=== PATIENT | male | born 1975 | race Caucasian/White ===

== ENCOUNTER → 2019-12-17 09:17 | Outpatient (CLI) | payer OTHER, SELFPAY ==
--- NOTE | 2019-12-17 | DI.RAD.S_ITS ---
PROCEDURE: XR LUMBAR SPINE 2-3V INDICATIONS: BACK PAIN TECHNIQUE: 3 views of the lumbar spine were acquired. COMPARISON: [facility], CR, KUB XRAY (1 VIEW ABDOMEN), 01/14/2017, 8:08. FINDINGS: Bones: 5 [id number] vertebrae are present. There is grade 1 retrolisthesis of L5 on S1. No vertebral body compression fractures. No suspicious bony lesions. There is mild degenerative disc disease at L3-L4, L4-L5 and L5-S1. Soft tissues: Overlying bowel gas pattern is normal. Bilateral renal calculi are suspected. A 5 mm stone projects to the right kidney and an 8 mm stone projects to the left kidney. Moderate amount of stool in colon. IMPRESSION: 1. Mild degenerative disc disease in the lower lumbar spine. 2. Bilateral renal calculi. Dictated by: Liu Ching M.D. on 12/17/2019 at 10:17 Approved by: Liu Ching M.D. on 12/17/2019 at 10:21
== END ==
PROVIDERS: PCP Family Medicine; Visit Provider Family Medicine
DX: M54.9 Dorsalgia, unspecified (principal); M51.36 Other intervertebral disc degeneration, lumbar region; M51.37 Other intervertebral disc degeneration, lumbosacral region; N20.0 Calculus of kidney
CPT/HCPCS: 72100

== ENCOUNTER 2019-12-27 15:39 | Emergency (ER) | payer OTHER, SELFPAY ==
[2019-12-27 15:54] VITALS: BP 136/80; PULSE 69; RESP 14; TEMP 37.1; O2SAT 99
--- NOTE | 2019-12-27 15:54 | DI.CT.S_ITS ---
PROCEDURE: CT KIDNEY URETER BLADDER (KUB) INDICATIONS: flank pain TECHNIQUE: Noncontrast 5 mm thick sections acquired from the diaphragms to the symphysis. 5 mm thick coronal and sagittal reformats were then performed. For radiation dose reduction, the following was used: automated exposure control, adjustment of mA and/or kV according to patient size. COMPARISON: [facility], CT, KIDNEY/ URETER/BLADDER, 11/12/2016, 14:53. FINDINGS: Image quality: Diagnostic. Lung bases: Lung bases are clear. Heart size is normal. Urinary system: Both kidneys are normal in size. Prominent right-sided periureteral and perinephric stranding is identified. There is a 5 x 6 x 6 mm calculus evident at the ureteropelvic junction with associated moderate right-sided hydronephrosis. No additional right-sided ureteral calculi are evident. There are multiple bilateral renal calculi with the largest located within the inferior aspect of the left kidney that is noted to measure up to approximately 1.1 cm in long axis. No left-sided hydronephrosis is identified. There is a rounded focus of low attenuation within the left kidney, which is not adequately evaluated on this examination and measures up to 1.9 cm, but most likely representing a cyst. Other solid organs: The spleen may be mildly enlarged and measures up to 14.5 cm in AP dimension. The liver is normal in size. The adrenals and pancreas appear to be within normal limits. Peritoneum and bowel: There may be a small hiatal hernia. The stomach is otherwise unremarkable. The small bowel loops are nondilated. A large amount of residual stool is identified throughout the colon. No free fluid or loculated fluid collection is appreciated within the peritoneal cavity of the abdomen. There is no free air. Nodes and vessels: No retroperitoneal or mesenteric adenopathy by size criteria. Aorta and inferior vena cava are normal in caliber. Pelvis: No free pelvic fluid. No inguinal hernias or adenopathy. Bones: No suspicious bony lesions. No vertebral body compression fractures. IMPRESSION: 1. At least partially obstructing proximal right ureteral calculus (6 mm) at the ureteropelvic junction with corresponding moderate right-sided hydronephrosis and perinephric edema. 2. Multiple bilateral nonobstructing renal calculi. 3. Possible mild splenomegaly. 4. No bowel obstruction. 5. Small hiatal hernia. Dictated by: Ulises Pierre M.D. on 12/27/2019 at 15:58 Approved by: Ulises Pierre M.D. on 12/27/2019 at 16:03
[2019-12-27 16:03] LABS: Add Manual Diff / Slide Review NO; Basophils Absolute Auto 100 /uL (0-100); Basophils Percent Auto 0.6 % (0-2); Eosinophils Absolute Auto 0 /uL (0-450); Eosinophils Percent Auto 0.1 % (2-4); Hematocrit 44.1 % (41-53); Hemoglobin 15.2 g/dL (13.5-17.5); Lymphocytes Absolute Auto 600 /uL (1100-4500); Lymphocytes Percent Auto 5.9 % (25-40); Mean Corpuscular HGB Conc 34.4 % (30-36); Mean Corpuscular Volume 84.4 fL (80-100); Monocytes Absolute Auto 600 /uL (0-900); Monocytes Percent Auto 5.8 % (3-14); Neutrophils Absolute Auto 9100 /uL (1500-7000); Neutrophils Percent Auto 87.6 % (50-75); Platelet Count 194 X10^3/uL (150-400); Red Blood Cell Count 5.23 X10^6/uL (4.5-5.9); Red Cell Distribution Width 13.2 % (11.6-14.8); White Blood Cell Count 10.4 X10^3/uL (4.5-11.0)
[2019-12-27 16:06] LABS: Alanine Aminotransferase 37 IU/L (<50); Albumin 4.4 g/dL (3.5-5.0); Albumin Globulin Ratio 1.7 (1.0-2.8); Alkaline Phosphatase 79 U/L (38-126); Aspartate Aminotransferase 43 IU/L (17-59); BUN Creatinine Ratio 18.2 (6-22); Blood Urea Nitrogen 20 mg/dL (9-20); Calcium 9.4 mg/dL (8.4-10.2); Carbon Dioxide 27 mmol/L (22-32); Chloride 102 mmol/L (98-107); Estimated Glomerular Filt Rate > 60.0 mL/min (>60); Globulin 2.6 g/dL (1.7-4.1); Glucose 96 mg/dL (70-100); HEMOLYSIS < 15 (0-50); Sodium 138 mmol/L (137-145)
[2019-12-27] MEDS: SODIUM CHLORIDE 0.9% 1,000 ML 1000 ML IV ×2 (16:08→18:30)
[2019-12-27] MEDS: ONDANSETRON 4 MG/2 ML INJ IV ×2 (16:08→18:24)
[2019-12-27] MEDS: KETOROLAC 60 MG/2 ML VIAL 30 MG IV (16:08)
[2019-12-27] MEDS: ONDANSETRON 4 MG/2 ML INJ (17:45)
[2019-12-27 17:49] LABS: Appearance Urine UA SL CLOUDY; Bilirubin Urine UA NEGATIVE (NEGATIVE); Color Urine UA YELLOW; Glucose Urine UA NEGATIVE (Negative); Ketones Urine UA 2+ (NEGATIVE); Leukocyte Esterase Urine UA NEGATIVE (NEGATIVE); Nitrite Urine UA NEGATIVE (Negative); Occult Blood Urine UA 3+ (Negative); Protein Urine UA TRACE (Negative); Specific Gravity Urine UA 1.015 (1.000-1.035); Urobilinogen Urine UA 0.2 E.U./dL (0.2)
[2019-12-27 17:59] LABS: Amorphous Sediment Urine 1+; RBC Urine >100/HPF (0-5/HPF); Squamous Epithelial Cell Urine 0-1 /HPF (0-5/HPF); Transitional Epi Cells Urine 0-1/HPF (0-5/HPF); WBC Urine 1-5/HPF (0-5/HPF)
[2019-12-27 18:00] LABS: Bacteria Urine Occasional (0-1); Culture Indicated Urine Cult Not Indicated
[2019-12-27] MEDS: HYDROCODONE/ACET 5/325 TABLET 1 TAB PO (18:23)
[2019-12-27] MEDS: TAMSULOSIN 0.4 MG CAPSULE PO (18:23)
[2019-12-27] MEDS: ONDANSETRON 4 MG ODT PREPACK 1 BOTTLE MISC (18:23)
[2019-12-27] MEDS: HYDROCODONE/ACET 5/325 PREPACK 1 BOTTLE MISC (18:24)
[2019-12-27] MEDS: KETOROLAC 10MG PREPACK 1 BOTTLE MISC (18:24)
[2019-12-27 18:35] VITALS: BP 116/78; PULSE 66; RESP 14; O2SAT 99
[2019-12-27 19:52] VITALS: BP 120/68; PULSE 53; RESP 16; O2SAT 99
--- NOTE | 2019-12-27 20:17 | ED_ITS ---
HPI - Male Genitourinary <JEREMIAH Bragg - Last Filed: 12/27/19 20:49> General Chief complaint: Urogenital-Male Stated complaint: Kidney Stone Time Seen by Provider: 12/27/19 15:47 Source: patient and family Mode of arrival: Ambulatory Limitations: no limitations History of Present Illness HPI Narrative: The patient is a 43-year-old male who presents with his for chief complaint of right-sided flank pain. He has a history of kidney stones, states that this started at 2:00 a.m.. He notes hematuria, nausea, vomiting and flank pain. States it feels very similar to previous kidney stones. He denies any dysuria, fevers. He has not taken anything to feel better. He states that his PCP is working on a urology referral given his history of kidney stones yet. He has not followed through on that yet. Related Data Previous Rx's Medication Instructions Recorded hydrocodone-acetaminophen [Thoreau] 1 tab PO Q4-6H PRN #10 tab 12/27/19 ketorolac 10 mg PO TID PRN #14 tab 12/27/19 ondansetron 4 mg PO Q6H PRN #20 tab 12/27/19 tamsulosin [Flomax] 0.4 mg PO DAILY #7 cap 12/27/19 Allergies Allergy/AdvReac Type Severity Reaction Status Date / Time Iodinated Contrast Media Allergy Verified 12/27/19 16:21 Review of Systems <JEREMIAH Bragg - Last Filed: 12/27/19 20:49> Review of Systems Narrative: GENERAL: Denies chills, fatigue, malaise, fever, sweats. HEENT: Denies sinus pain, ear pain, sore throat, difficulty swallowing, dizziness. RESPIRATORY: Denies dyspnea, cough, wheezing, hemoptysis, sputum. CARDIOVASCULAR: Denies chest pain, palpitations, orthopnea, edema, GASTROINTESTINAL: See HPI : See HPI MUSCULOSKELETAL: denies weakness, joint pain, or bony pain SKIN: Denies rash, skin lesions, or other NEUROLOGIC: Denies weakness, headache, numbness, change in speech, confusion, seizures, incoordination. PSYCHIATRIC: No concerning psychosocial issues. 12 point review of systems is negative except for those stated above Exam <JEREMIAH Bragg - Last Filed: 12/27/19 20:49> Narrative Exam Narrative: GENERAL: This is a well-nourished, well-developed patient, appears uncomfortable HEAD: Atraumatic. Normocephalic. No temporal or scalp tenderness. EYES: Pupils equal round and reactive. Extraocular motions intact. No scleral icterus. No injection or drainage. ENT: Nose without bleeding, purulent drainage or septal hematoma. Throat without erythema, tonsillar hypertrophy or exudate. Uvula midline. Airway patent. NECK: Trachea midline. No JVD or lymphadenopathy. Supple, nontender, no meningeal signs. CARDIOVASCULAR: Regular rate and rhythm RESPIRATORY: Clear to auscultation. Breath sounds equal bilaterally. No wheezes, rales, or rhonchi. GASTROINTESTINAL: Abdomen soft, non-tender, nondistended. No hepato- splenomegaly, or palpable masses. No guarding. EXTREMITIES: No clubbing, cyanosis, or edema. No joint tenderness, effusion, or edema noted. BACK: Nontender without deformity or crepitance. Flank tenderness noted on right side, no flank tenderness noted on left side NEURO: AOx3. SKIN: No rash or erythema visible skin Initial Vital Signs Initial Vital Signs: Vital Signs Temperature 98.8 F 12/27/19 15:54 Pulse Rate 69 12/27/19 15:54 Respiratory Rate 14 12/27/19 15:54 Blood Pressure 136/80 12/27/19 15:54 Pulse Oximetry 99 12/27/19 15:54 <Melissa Hair DO - Last Filed: 12/30/19 07:15> Initial Vital Signs Initial Vital Signs: Vital Signs Temperature 98.8 F 12/27/19 15:54 Pulse Rate 69 12/27/19 15:54 Respiratory Rate 14 12/27/19 15:54 Blood Pressure 136/80 12/27/19 15:54 Pulse Oximetry 99 12/27/19 15:54 Course <JEREMIAH Bragg - Last Filed: 12/27/19 20:49> Orders Ordered: Discontinued Medications Hydrocodone Bitart/Acetaminophen (Thoreau 5/325) 1 tab PO NOW ONE Stop: 12/27/19 18:11 Last Admin: 12/27/19 18:23 Dose: 1 tab Documented by: KINA Hydrocodone Bitart/Acetaminophen (Vicodin 5/325 Prepack) 1 bottle MISC SEEINSTR ONE Stop: 12/27/19 18:11 Last Admin: 12/27/19 18:24 Dose: 1 bottle Documented by: KINA Sodium Chloride (Normal Saline 0.9%) 1,000 mls @ 1,000 mls/hr IV BOLUS ONE Stop: 12/27/19 16:53 Last Infusion: 12/27/19 17:45 Dose: 0 mls/hr Documented by: Admin: 12/27/19 16:08 Dose: 1,000 mls/hr Documented by: ELIDA Sodium Chloride (Normal Saline 0.9%) 1,000 mls @ 1,000 mls/hr IV BOLUS PRN PRN Reason: Fluid replacement Last Infusion: 12/27/19 19:46 Dose: 0 mls/hr Documented by: Admin: 12/27/19 18:30 Dose: 1,000 mls/hr Documented by: KINA Ketorolac Tromethamine (Toradol) 30 mg IV NOW ONE Stop: 12/27/19 15:55 Last Admin: 12/27/19 16:08 Dose: 30 mg Documented by: ELIDA Ketorolac Tromethamine (Toradol 10mg Prepack) 1 bottle MISC SEEINSTR ONE Stop: 12/27/19 18:11 Last Admin: 12/27/19 18:24 Dose: 1 bottle Documented by: KINA Ondansetron HCl (Zofran) 4 mg IV NOW ONE Stop: 12/27/19 15:55 Last Admin: 12/27/19 16:08 Dose: 4 mg Documented by: ELIDA Ondansetron HCl (Zofran) 4 mg IV NOW ONE Stop: 12/27/19 17:45 Last Admin: 12/27/19 18:24 Dose: 4 mg Documented by: KINA Ondansetron HCl (Zofran Odt Prepack) 1 bottle MISC SEEINSTR ONE Stop: 12/27/19 18:11 Last Admin: 12/27/19 18:23 Dose: 1 bottle Documented by: KINA Tamsulosin HCl (Flomax) 0.4 mg PO NOW ONE Stop: 12/27/19 18:11 Last Admin: 12/27/19 18:23 Dose: 0.4 mg Documented by: KINA Vital Signs Vital signs: Vital Signs - 8 hr 12/27/19 15:54 12/27/19 18:35 12/27/19 19:52 Temperature 98.8 F Pulse Rate 69 66 53 L Respiratory Rate 14 14 16 Blood Pressure 136/80 120/68 Blood Pressure [Right Arm] 116/78 Pulse Oximetry 99 99 99 <Melissa Hair DO - Last Filed: 12/30/19 07:15> Orders Ordered: Discontinued Medications Hydrocodone Bitart/Acetaminophen (Thoreau 5/325) 1 tab PO NOW ONE Stop: 12/27/19 18:11 Last Admin: 12/27/19 18:23 Dose: 1 tab Documented by: KINA Hydrocodone Bitart/Acetaminophen (Vicodin 5/325 Prepack) 1 bottle MISC SEEINSTR ONE Stop: 12/27/19 18:11 Last Admin: 12/27/19 18:24 Dose: 1 bottle Documented by: KINA Sodium Chloride (Normal Saline 0.9%) 1,000 mls @ 1,000 mls/hr IV BOLUS ONE Stop: 12/27/19 16:53 Last Infusion: 12/27/19 17:45 Dose: 0 mls/hr Documented by: Admin: 12/27/19 16:08 Dose: 1,000 mls/hr Documented by: ELIDA Sodium Chloride (Normal Saline 0.9%) 1,000 mls @ 1,000 mls/hr IV BOLUS PRN PRN Reason: Fluid replacement Last Infusion: 12/27/19 19:46 Dose: 0 mls/hr Documented by: Admin: 12/27/19 18:30 Dose: 1,000 mls/hr Documented by: KINA Ketorolac Tromethamine (Toradol) 30 mg IV NOW ONE Stop: 12/27/19 15:55 Last Admin: 12/27/19 16:08 Dose: 30 mg Documented by: ELIDA Ketorolac Tromethamine (Toradol 10mg Prepack) 1 bottle MISC SEEINSTR ONE Stop: 12/27/19 18:11 Last Admin: 12/27/19 18:24 Dose: 1 bottle Documented by: KINA Ondansetron HCl (Zofran) 4 mg IV NOW ONE Stop: 12/27/19 15:55 Last Admin: 01/26/20 16:08 Dose: 4 mg Documented by: ELIDA Ondansetron HCl (Zofran) 4 mg IV NOW ONE Stop: 12/27/19 17:45 Last Admin: 12/27/19 18:24 Dose: 4 mg Documented by: KINA Ondansetron HCl (Zofran Odt Prepack) 1 bottle MISC SEEINSTR ONE Stop: 12/27/19 18:11 Last Admin: 12/27/19 18:23 Dose: 1 bottle Documented by: KINA Tamsulosin HCl (Flomax) 0.4 mg PO NOW ONE Stop: 12/27/19 18:11 Last Admin: 12/27/19 18:23 Dose: 0.4 mg Documented by: KINA Vital Signs Vital signs: Vital Signs - 8 hr 12/27/19 15:54 12/27/19 18:35 12/27/19 19:52 Temperature 98.8 F Pulse Rate 69 66 53 L Respiratory Rate 14 14 16 Blood Pressure 136/80 120/68 Blood Pressure [Right Arm] 116/78 Pulse Oximetry 99 99 99 MDM - Male Genitourinary <CHIRAG BraggP- - Last Filed: 12/27/19 20:49> Lab Data Result diagrams: 12/27/19 15:30 12/27/19 15:30 Labs: Lab Results 12/27/19 12/27/19 12/27/19 Range/Units 15:30 15:30 17:42 WBC 10.4 (4.5-11.0) X10^3/uL RBC 5.23 (4.5-5.9) X10^6/uL Hgb 15.2 (13.5-17.5) g/dL Hct 44.1 (41-53) % MCV 84.4 (80-100) fL MCH 29.0 (26-34) PG MCHC 34.4 (30-36) % RDW 13.2 (11.6-14.8) % Plt Count 194 (150-400) X10^3/uL Neut % (Auto) 87.6 H (50-75) % Lymph % (Auto) 5.9 L (25-40) % [place] % (Auto) 5.8 (3-14) % Eos % (Auto) 0.1 L (2-4) % Baso % (Auto) 0.6 (0-2) % Neut # (Auto) 9100 H (3965-4956) /uL Lymph # (Auto) 600 L (2420-7782) /uL [place] # (Auto) 600 (0-900) /uL Eos # (Auto) 0 (0-450) /uL Baso # (Auto) 100 (0-100) /uL Sodium 138 (137-145) mmol/L Potassium 4.0 (3.4-5.1) mmol/L Chloride 102 (98-107) mmol/L Carbon Dioxide 27 (22-32) mmol/L BUN 20 (9-20) mg/dL Creatinine 1.10 (0.66-1.25) mg/dL Estimated GFR > 60.0 (>60) mL/min BUN/Creatinine Ratio 18.2 (6-22) Glucose 96 (70-100) mg/dL Calcium 9.4 (8.4-10.2) mg/dL Total Bilirubin 1.0 (0.2-1.3) mg/dL AST 43 (17-59) IU/L ALT 37 (<50) IU/L Alkaline Phosphatase 79 (38-126) U/L Total Protein 7.0 (6.3-8.2) g/dL Albumin 4.4 (3.5-5.0) g/dL Globulin 2.6 (1.7-4.1) g/dL Albumin/Globulin Ratio 1.7 (1.0-2.8) Urine Color Yellow Urine Appearance Sl cloudy Urine pH 7.0 (4.5-8.0) Ur Specific [place] 1.015 (1.000-1.035) Urine Protein Trace H (Negative) Urine Glucose (UA) Negative (Negative) g/dL Urine Ketones 2+ H (NEGATIVE) Urine Occult Blood 3+ H (Negative) Urine Nitrate Negative (Negative) Urine Bilirubin Negative (NEGATIVE) Urine Urobilinogen 0.2 (0.2) E.U./dL Ur Leukocyte Esterase Negative (NEGATIVE) Urine RBC >100/hpf (0-5/HPF) Urine WBC 1-5/hpf (0-5/HPF) Ur Squamous Epith Cells 0-1 /hpf (0-5/HPF) Ur Transition Epith Cell 0-1/hpf (0-5/HPF) Amorphous Sediment 1+ Urine Bacteria Occasional (0-1) (None) Ur Culture Indicated? Cult not indicated Imaging Data CT scan - abdomen/pelvis: Radiologist's Impression: [address] [address] [address] Scan Report Signed Patient: Dewey Erwin RMR#: [id number] : 1975Acct:[id number] Age/Sex: 43 / MDate of Service: 12/27/19 Loc: ED Accession Number: [id number] Procedure: CT kidney ureter bladder (KUB) Ordering Provider: Allyssa Cain- PROCEDURE: CT KIDNEY URETER BLADDER (KUB) INDICATIONS: flank pain TECHNIQUE: Noncontrast 5 mm thick sections acquired from the diaphragms to the symphysis. 5 mm thick coronal and sagittal reformats were then performed. For radiation dose reduction, the following was used: automated exposure control, adjustment of mA and/or kV according to patient size. COMPARISON: [facility], CT, KIDNEY/ URETER/BLADDER, 11/12/2016, 14:53. FINDINGS: Image quality: Diagnostic. Lung bases: Lung bases are clear. Heart size is normal. Urinary system: Both kidneys are normal in size. Prominent right-sided periureteral and perinephric stranding is identified. There is a 5 x 6 x 6 mm calculus evident at the ureteropelvic junction with associated moderate right-sided hydronephrosis. No additional right-sided ureteral calculi are evident. There are multiple bilateral renal calculi with the largest located within the inferior aspect of the left kidney that is noted to measure up to approximately 1.1 cm in long axis. No left-sided hydronephrosis is identified. There is a rounded focus of low attenuation within the left kidney, which is not adequately evaluated on this examination and measures up to 1.9 cm, but most likely representing a cyst. Other solid organs: The spleen may be mildly enlarged and measures up to 14.5 cm in AP dimension. The liver is normal in size. The adrenals and pancreas appear to be within normal limits. Peritoneum and bowel: There may be a small hiatal hernia. The stomach is otherwise unremarkable. The small bowel loops are nondilated. A large amount of residual stool is identified throughout the colon. No free fluid or loculated fluid collection is appreciated within the peritoneal cavity of the abdomen. There is no free air. Nodes and vessels: No retroperitoneal or mesenteric adenopathy by size criteria. Aorta and inferior vena cava are normal in caliber. Pelvis: No free pelvic fluid. No inguinal hernias or adenopathy. Bones: No suspicious bony lesions. No vertebral body compression fractures. IMPRESSION: 1. At least partially obstructing proximal right ureteral calculus (6 mm) at the ureteropelvic junction with corresponding moderate right-sided hydronephrosis and perinephric edema. 2. Multiple bilateral nonobstructing renal calculi. 3. Possible mild splenomegaly. 4. No bowel obstruction. 5. Small hiatal hernia. Dictated by: Ulises Pierre M.D. on 12/27/2019 at 15:58 Approved by: Ulises Pierre M.D. on 12/27/2019 at 16:03 MDM Narrative Medical decision making narrative: Patient is a 43-year-old male with history of kidney stones who presents with a chief complaint of right-sided flank pain. He has a 6 mm partially obstructing right ureteral calculus. Kidney function is within normal limits. He is able to keep down p.o. in the emergency department. Patient states that his primary care provider is working on a urology referral and that he plans on calling his PCP on Saturday to follow through with that. He has no signs of infection in his urine, no nitrates or leukocyte esterase etcetera with no need for culture. I discussed at length pushing fluids, pain medication, that Thoreau can be constipating and sedating, not combining Toradol with any other anti-inflammatories. Encouraged monitoring for signs of infection such as fever, inability keep down fluids etcetera as well as dysuria. Discussed draining urine, starting Flomax. Patient was given take-home packs. Patient has no questions or concerns upon discharge and states understanding return precautions as well as follow-up care. <Melissa Hair, DO - Last Filed: 12/30/19 07:15> Lab Data Labs: Lab Results 12/27/19 12/27/19 12/27/19 Range/Units 15:30 15:30 17:42 WBC 10.4 (4.5-11.0) X10^3/uL RBC 5.23 (4.5-5.9) X10^6/uL Hgb 15.2 (13.5-17.5) g/dL Hct 44.1 (41-53) % MCV 84.4 (80-100) fL MCH 29.0 (26-34) PG MCHC 34.4 (30-36) % RDW 13.2 (11.6-14.8) % Plt Count 194 (150-400) X10^3/uL Neut % (Auto) 87.6 H (50-75) % Lymph % (Auto) 5.9 L (25-40) % [place] % (Auto) 5.8 (3-14) % Eos % (Auto) 0.1 L (2-4) % Baso % (Auto) 0.6 (0-2) % Neut # (Auto) 9100 H (8993-5441) /uL Lymph # (Auto) 600 L (6962-5099) /uL [place] # (Auto) 600 (0-900) /uL Eos # (Auto) 0 (0-450) /uL Baso # (Auto) 100 (0-100) /uL Sodium 138 (137-145) mmol/L Potassium 4.0 (3.4-5.1) mmol/L Chloride 102 (98-107) mmol/L Carbon Dioxide 27 (22-32) mmol/L BUN 20 (9-20) mg/dL Creatinine 1.10 (0.66-1.25) mg/dL Estimated GFR > 60.0 (>60) mL/min BUN/Creatinine Ratio 18.2 (6-22) Glucose 96 (70-100) mg/dL Calcium 9.4 (8.4-10.2) mg/dL Total Bilirubin 1.0 (0.2-1.3) mg/dL AST 43 (17-59) IU/L ALT 37 (<50) IU/L Alkaline Phosphatase 79 (38-126) U/L Total Protein 7.0 (6.3-8.2) g/dL Albumin 4.4 (3.5-5.0) g/dL Globulin 2.6 (1.7-4.1) g/dL Albumin/Globulin Ratio 1.7 (1.0-2.8) Urine Color Yellow Urine Appearance Sl cloudy Urine pH 7.0 (4.5-8.0) Ur Specific [place] 1.015 (1.000-1.035) Urine Protein Trace H (Negative) Urine Glucose (UA) Negative (Negative) g/dL Urine Ketones 2+ H (NEGATIVE) Urine Occult Blood 3+ H (Negative) Urine Nitrate Negative (Negative) Urine Bilirubin Negative (NEGATIVE) Urine Urobilinogen 0.2 (0.2) E.U./dL Ur Leukocyte Esterase Negative (NEGATIVE) Urine RBC >100/hpf (0-5/HPF) Urine WBC 1-5/hpf (0-5/HPF) Ur Squamous Epith Cells 0-1 /hpf (0-5/HPF) Ur Transition Epith Cell 0-1/hpf (0-5/HPF) Amorphous Sediment 1+ Urine Bacteria Occasional (0-1) (None) Ur Culture Indicated? Cult not indicated Discharge Plan Departure Patient Disposition: Home Clinical Impression: Bilateral nephrolithiasis, Right ureteral calculus Discharge Date/Time: 12/27/19 19:52 Instructions: DI for Kidney Stones Activity Restrictions/Additional Instructions: You have a 6 mm ureteral calculus at your ureteropelvic junction You also have multiple stones in each kidney Today your kidney function is good and your urine is without signs of infection. 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 This is an NSAID. Do not combine it with other NSAIDs such as Aleve or ibuprofen. I suggest taking it with some food, as it can irritate your stomach. I have given you a prescription of a narcotic for pain. Be aware that this can be constipating and sedating. I encouraged taking with a stool softener, pushing fluids and fiber. Do not take and drive, operate heavy machinery, etc. Do not combine it with any other sedating substances such as alcohol. The combination of narcotics and alcohol and/or other sedatives can be lethal. Prescriptions: New ondansetron 4 mg tablet,disintegrating 4 mg PO Q6H PRN (Reason: nausea and vomiting) Qty: 20 RF: 0 hydrocodone-acetaminophen [Thoreau] 5-325 mg tablet 1 tab PO Q4-6H PRN (Reason: pain) Qty: 10 RF: 0 ketorolac 10 mg tablet 10 mg PO TID PRN (Reason: pain) Qty: 14 RF: 0 tamsulosin [Flomax] 0.4 mg capsule 0.4 mg PO DAILY Qty: 7 RF: 0 Referrals: Rick Petit MD [Primary Care Provider] -
== END 2019-12-27 19:52 | disposition home or self-care (01) ==
PROVIDERS: Emergency Provider Nurse Practitioner Family; PCP Family Medicine
DX: N20.2 Calculus of kidney with calculus of ureter (principal); Z87.442 Personal history of urinary calculi
CPT/HCPCS: 36415; 74176; 80053; 81001; 85025; 96361; 96374; 96375; 96376; 99284; 99285; J1885; J2405

== ENCOUNTER → 2020-03-01 12:43 | Outpatient (CLI) | payer OTHER, SELFPAY ==
--- NOTE | 2020-03-01 | DI.US.S_ITS ---
PROCEDURE: US RENAL COMPLETE INDICATIONS: HISTORY KIDNEY STONES; RECENT RIGHT URETERAL STONE TECHNIQUE: Real-time scanning was performed of the kidneys and bladder, with image documentation. COMPARISON: [facility], CT, CT KIDNEY URETER BLADDER (KUB), 12/27/2019, 16:41. FINDINGS: Kidneys: Kidneys are normal in size. Right kidney measures 10.7 cm long; left kidney measures 10.8 cm long. Right renal cortical thickness is 1.5 cm; left renal cortical thickness is 1.5 cm. Renal cortical echotexture is normal. There is a 2 cm simple appearing cyst involving the mid aspect of the left kidney. A 1.1 cm calculus is identified involving the inferior margin of the left kidney. No definitive additional calculi are appreciated. However, multiple punctate bright reflectors within both renal medullary portions of the kidneys are evident. Bladder: Pre-void bladder volume is 129 mL. Post-void residual is 18 mL. Pre-void images demonstrate no intraluminal masses or stones. Miscellaneous: No free pelvic fluid. IMPRESSION: 1. No hydronephrosis. Previously seen right sided hydronephrosis has resolved. 2. Left renal calculi. Dictated by: Ulises Pierre M.D. on 03/01/2020 at 12:51 Approved by: Ulises Pierre M.D. on 03/01/2020 at 12:55
== END ==
PROVIDERS: PCP Family Medicine; Referring Provider Urology; Visit Provider Urology
DX: N20.1 Calculus of ureter (principal); N20.0 Calculus of kidney; N28.1 Cyst of kidney, acquired
CPT/HCPCS: 76770

== ENCOUNTER → 2020-08-27 08:41 | Outpatient (CLI) | payer OTHER, SELFPAY ==
--- NOTE | 2020-08-27 | DI.MRI.S_ITS ---
PROCEDURE: MR LUMBAR SPINE WO CON INDICATIONS: LOW BACK PAIN WITH SCIATICA TECHNIQUE: Noncontrast sagittal T1 spin echo and T2 fast echo, sagittal STIR, axial T1 and T2 fast spin echo through the lumbar spine. In cases with scoliosis, additional coronal T2 fast spin echo may be performed. COMPARISON: [facility], CR, XR LUMBAR SPINE 2-3V, 12/17/2019, 9:29. FINDINGS: Image quality: Excellent. Alignment and Curvature: 5 lumbar type vertebral bodies are present by plain film. Mild grade 1 retrolisthesis of L4 on L5 and L5 on S1. Bone Marrow: Marrow is of normal overall signal. No acute vertebral body compression fractures. Mild reactive signal within the endplates adjacent to the L4-L5 and L5-S1 intervertebral discs. Spinal Cord: Conus medullaris terminates at the lower L2 level. Visualized cord demonstrates normal signal and size. Paraspinous Soft Tissues: No paravertebral masses. L1-L2: Normal appearance. L2-L3: Normal appearance. L3-L4: Mild disc desiccation. No significant canal, or foraminal stenosis. L4-L5: Mild disc height loss and desiccation. Mild diffuse disc bulge. Mild facet and ligamentum flavum hypertrophy. Mild epidural lipomatosis. Mild canal stenosis. Mild bilateral foraminal stenosis. L5-S1: Moderate disc height loss and desiccation. Mild diffuse disc bulge with superimposed left paracentral protrusion. Mild bilateral facet hypertrophy. Mild canal stenosis. Moderate to severe left foraminal stenosis. Mild right foraminal stenosis. Mild left L5 nerve root compression. IMPRESSION: 1. Multilevel degenerative disc and facet disease, as well as ligamentum flavum hypertrophy and epidural lipomatosis. 2. Mild multilevel canal stenosis. 3. Multilevel foraminal stenosis, worst on the left at L5-S1 where there is associated L5 nerve root compression. Recommend correlation with clinical symptoms to ascertain relevance of this finding. Dictated by: Lokesh Resendiz M.D. on 08/29/2020 at 8:15 Approved by: Lokesh Resendiz M.D. on 08/29/2020 at 8:18
== END ==
PROVIDERS: PCP Family Medicine; Referring Provider Family Medicine; Visit Provider Family Medicine
DX: M51.16 Intervertebral disc disorders with radiculopathy, lumbar region (principal); M51.17 Intervertebral disc disorders with radiculopathy, lumbosacral region; M48.061 Spinal stenosis, lumbar region without neurogenic claudication; M48.07 Spinal stenosis, lumbosacral region; E88.2 Lipomatosis, not elsewhere classified
CPT/HCPCS: 72148

== ENCOUNTER → 2021-01-30 15:45 | Outpatient (CLI) | payer OTHER, SELFPAY ==
--- NOTE | 2021-01-30 15:48 | DI.US.S_ITS ---
PROCEDURE: US SCROTUM INDICATIONS: RIGHT TESTICLE MASS TECHNIQUE: Real-time scanning was performed of the scrotum and testicles, with image documentation. Color and pulse Doppler interrogation was performed of both testicles. COMPARISON: None. FINDINGS: Right: Testicle is normal in size at 4.7 x 3.1 x 2.4 cm, and homogenous in echotexture. Epididymis is normal in overall size and morphology. No hydrocele or varicoceles. Overlying scrotal skin is normal in thickness. Left: Testicle is normal in size at 4.6 x 3.6 x 2.1 cm, and homogeneous in echotexture. Epididymis is normal in overall size and morphology. No hydrocele or varicoceles. Overlying scrotal skin is normal in thickness. Doppler: Color and pulse Doppler demonstrate normal and symmetric arterial flow in both testicles. IMPRESSION: Negative examination as above. No discrete mass identified Dictated by: Sergey Rosa M.D. on 01/30/2021 at 16:48 Approved by: Sergey Rosa M.D. on 01/30/2021 at 16:50
== END ==
PROVIDERS: PCP Family Medicine; Referring Provider Family Medicine; Visit Provider Family Medicine
DX: N50.9 Disorder of male genital organs, unspecified (principal)
CPT/HCPCS: 76870

== ENCOUNTER → 2021-05-09 17:43 | Outpatient (CLI) | payer OTHER, SELFPAY ==
--- NOTE | 2021-05-09 | DI.MRI.S_ITS ---
PROCEDURE: MR KNEE LT WO CON INDICATIONS: Unspecified internal derangement of left knee TECHNIQUE: Noncontrast sagittal PD fast spin echo and T2 fast spin echo with fat saturation, sagittal 3-D FLASH with fat saturation; coronal T1 spin echo and PD fast spin echo with fat saturation, and axial PD fast spin echo with fat saturation through the knee. COMPARISON: None. FINDINGS: Image quality: Excellent. Menisci: The medial and lateral menisci demonstrate normal morphology and internal signal. The meniscal root ligaments appear intact. Cruciate ligaments: There is suggestion of low-grade intrasubstance partial-thickness tear involving distal anterior cruciate ligament near its tibial insertion. No full-thickness ACL rupture. PCL is intact. Medial structures: The medial collateral ligament appears intact. The posterior oblique ligament, semimembranosus tendon insertions, oblique popliteal ligament, and meniscocapsular junction appear intact. Visualized portions of the pes anserinus tendons appear normal. No abnormal bursal fluid. Lateral structures: The lateral collateral ligament, long and short heads of the biceps femoris tendon appear intact. The popliteus tendon appears normal; the popliteofibular ligament appears intact. The posterosuperior and anteroinferior popliteomeniscal fascicles appear intact. The arcuate and fabellofibular ligaments appear intact, on either side of the lateral inferior geniculate artery. Iliotibial band appears normal. Anterior structures: The quadriceps and patellar tendons appear intact. Patellar alignment is normal. No femoral trochlear dysplasia or ventral trochlear prominence. No edema in the infrapatellar fat pad. Bones and cartilage: There is focal area of moderate grade chondromalacia involving lateral facet of patella cartilage with underlying 5 mm osteochondral injury and mild marrow edema in posterior and lateral portion of patella. No other area of abnormal marrow signal. The cartilage of the medial and lateral femorotibial compartments appears normal in thickness. Joint space: There is small amount of joint fluid. No Newton's cyst. Normal appearing synovial plicae are incidentally noted. IMPRESSION: 1. 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 No other area of abnormal marrow signal or chondromalacia. Small amount of joint fluid. 2. Suggestion of low-grade intrasubstance partial-thickness tear involving distal anterior cruciate ligament at its tibial insertion. No full-thickness ACL rupture. PCL is intact. 3. No evidence of focal meniscal tear. Dictated by: Juancarlos Zapata M.D. on 05/10/2021 at 8:40 Approved by: Juancarlos Zapata M.D. on 05/10/2021 at 9:07
== END ==
PROVIDERS: PCP Family Medicine; Referring Provider Orthopaedic Surgery; Visit Provider Orthopaedic Surgery
DX: M22.42 Chondromalacia patellae, left knee (principal)
CPT/HCPCS: 73721

== ENCOUNTER 2021-10-29 15:22 | Emergency (ER) | payer OTHER, SELFPAY ==
[2021-10-29] VITALS (9 sets, daily range): BP systolic 119–133; BP diastolic 76–84; PULSE 59–73; RESP 12–22; TEMP 37.1; O2SAT 99–100
--- NOTE | 2021-10-29 15:40 | DI.RAD.S_ITS ---
PROCEDURE: XR CHEST 1V INDICATIONS: syncope vs seizure vs other TECHNIQUE: One view of the chest was acquired. COMPARISON: [facility], CT, CT HEAD/BRAIN WO CON, 10/29/2021, 15:49. FINDINGS: Surgical changes and devices: None. Lungs and pleura: Lungs are clear. No pleural effusions or pneumothorax. Mediastinum: Mediastinal contours appear normal. Heart size is normal. Bones and chest wall: No suspicious bony lesions. Overlying soft tissues appear unremarkable. IMPRESSION: Portable chest within normal limits. Dictated by: Phani Yuan M.D. on 10/29/2021 at 15:14 Approved by: Phani Yuan M.D. on 10/29/2021 at 15:14
--- NOTE | 2021-10-29 15:41 | DI.CT.S_ITS ---
PROCEDURE: CT HEAD/BRAIN WO CON INDICATIONS: syncope vs seizure vs other TECHNIQUE: Noncontrast 4.5 mm thick angled axial sections acquired from the foramen magnum to the vertex, with coronal and sagittal reformats. For radiation dose reduction, the following was used: automated exposure control, adjustment of mA and/or kV according to patient size. COMPARISON: [facility], RG, MRI HEAD W/O CONTRAST, 01/09/2006, 13:46. [facility], CR, XR CHEST 1V, 10/29/2021, 16:00. FINDINGS: Image quality: Excellent. CSF spaces: Basal cisterns are patent. No extra-axial fluid collections. Ventricles are normal in size and shape. Brain: No midline shift. No intracranial masses or hemorrhage. Garza-white matter interface is normal. Skull and face: Calvarium and visualized facial bones are intact, without suspicious lesions. Sinuses: Visualized sinuses and mastoids are clear. IMPRESSION: Unremarkable intracranial study, without a cause of seizures identified. Dictated by: Phani Yuan M.D. on 10/29/2021 at 15:12 Approved by: Phani Yuan M.D. on 10/29/2021 at 15:13
--- NOTE | 2021-10-29 15:42 | ED.SYNCOPE ---
HPI - Syncope General Chief Complaint: Syncope Stated Complaint: Syncope/ seizures Time Seen by Provider: 10/29/21 15:40 Source: patient and family Mode of arrival: EMS Limitations: no limitations History of Present Illness HPI narrative: This is a 45-year-old male who comes in for possible syncope versus seizure activity. Patient states he was on the couch, he did really have any sensation that anything was about to happen on and states he sort of woke up sideways on the couch. When EMS arrived he was orthostatic and when they tried to stand him his blood pressure dropped 80 and he became very lightheaded like he would pass out. Patient states he had a headache afterwards but did not have 1 prior to. It is behind his left eye. He denies any acute vision changes. He has some tingling in both fingers. He denies any new speech changes, no numbness or weakness in his extremities. He states all of his extremities are moving normally he does note when he moves his head side to side this seems to cause some spinning of the room but he did not appreciate this before he has had some mild vertigo in the past but not persistent. He has not had similar symptoms in the past. He does run regularly including ultra marathons. He took Ambien the last 2 nights but does not normally take this and he takes Zoloft regularly and this is not a new medication with no other new medication changes. He has not any other daily medications. No prior surgeries. He does not smoke tobacco. He occasionally has 1-3 alcoholic drinks nightly but not every night. Patient states he uses marijuana but denies any other recreational drugs. He does not have any prior family history of cardiac issues, seizures or similar changes. Related Data Previous Rx's Medication Instructions Recorded hydrocodone 5 mg-acetaminophen 325 1 tab PO Q4-6H PRN #10 tab 12/27/19 mg tablet (Alamo) ketorolac 10 mg tablet 10 mg PO TID PRN #14 tab 12/27/19 ondansetron 4 mg disintegrating 4 mg PO Q6H PRN #20 tab 12/27/19 tablet tamsulosin 0.4 mg capsule (Flomax) 0.4 mg PO DAILY #7 cap 12/27/19 Allergies Allergy/AdvReac Type Severity Reaction Status Date / Time Iodinated Contrast Media Allergy Verified 12/27/19 16:21 Review of Systems Review of Systems ROS Unobtainable: All systems reviewed & are unremarkable except as noted in HPI and below Patient History tobacco type: vaping Exam Narrative Exam Narrative: GEN: well nourished, well appearing male, alert and oriented x 3, patient appears to be in mild distress. Patient is slightly tearful on exam. HEENT: Atraumatic, pupils are equal round reactive to light, extraocular movements are intact, no nystagmus, nares are clear, TMs are clear with no fluid, there is no conjunctival pallor. Throat is clear without any exudates, erythema, tonsillar enlargement or uvular deviation, no facial droop. HEART: Regular rate and rhythm without murmur, clicks, rubs. No carotid bruits, pulses are equal in upper and lower extremities LUNGS:Lungs clear to auscultation, no wheezes, rales, crackles, chest moves symmetrically ABD:bowel sounds normal, soft, non-tender, no guarding, rebound, rigidity, no masses noted, no hepatosplenomegaly :No CVA tenderness MSCL: Non-tender, no muscle atrophy, muscles strength 5/5 upper and lower extremities, full range of motion, mild generalized tremor particularly in lower extremities. NEURO:CN 2-12 intact, sensation normal, reflexes 2/4 upper and lower extremities. finger nose finger test normal, heel lang test normal SKIN: No rash, erythema or other skin changes noted. PSYCH: Patient denies any thoughts of harming himself or others. He slightly tearful. Initial Vital Signs Initial Vital Signs: Vital Signs Pulse Rate 73 10/29/21 15:26 Blood Pressure 133/84 10/29/21 15:26 Pulse Oximetry 100 10/29/21 15:26 Scores GCS Aron coma scale eye opening: Spontaneous Aron coma scale verbal response: Orientated Aron coma scale motor response: Obey commands Se[place]rook coma scale total score: 15 NIH Stroke Scale Level of Conciousness: Alert, keenly responsive Ask month/age: Answers both questions correctly. Open/close eyes, close hand: Performs both tasks correctly Best gaze horizontal: Normal Visual raygoza: No visual loss Facial palsy: Normal symetrical movement Left arm drift: No drift for full 10 sec Right arm drift: No drift for full 10 sec Left leg drift: No drift for full 5 sec Right leg drift: No drift for full 5 sec Limb ataxia: Absent Sensory on face/arms/legs: Normal, no sensory loss Best language: No aphasia, normal Dysarthria: Normal Extinction or inattention: No abnormality Total NIH Stroke scale score: 0 Course Orders Ordered: ED Orders 10/29/21 15:35 Complete Blood Count AUTO DIFF Stat Comprehensive Metabolic Panel Stat D Dimer Stat ETOH [Ethanol (ETOH)] Stat NT-proBNP (BNP-Adult 18+) Stat Troponin & CK Cardiac Panel Stat 10/29/21 15:40 XR chest 1V Stat 10/29/21 15:41 CT head/brain wo con Stat 10/29/21 15:45 EKG-12 Lead Stat 10/29/21 16:02 UA Complete [Urinalysis and Microscopic] Stat Urine Drug Screen, Rapid Stat 10/29/21 16:10 COVID19 -Nasal swab/Pre-Proc Stat Discontinued Medications Sodium Chloride (Normal Saline 0.9%) 1,000 mls @ 1,000 mls/hr IV BOLUS ONE Stop: 10/29/21 16:39 Last Infusion: 10/29/21 16:28 Dose: 0 mls/hr Documented by: Admin: 10/29/21 16:15 Dose: 1,000 mls/hr Documented by: VARUN Meclizine HCl (Meclizine Hcl 12.5 Mg Tablet) 50 mg PO NOW ONE Stop: 10/29/21 15:41 Last Admin: 10/29/21 16:15 Dose: 50 mg Documented by: VARUN Ondansetron HCl (Ondansetron 4 Mg/2 Ml Inj) 4 mg IV NOW ONE Stop: 10/29/21 15:41 Last Admin: 10/29/21 15:45 Dose: 4 mg Documented by: VARUN Vital Signs Vital signs: Vital Signs - 8 hr 10/29/21 15:26 10/29/21 15:30 10/29/21 15:56 Temperature 98.7 F Pulse Rate 73 67 68 Respiratory Rate 12 18 Blood Pressure 133/84 123/79 126/76 Blood Pressure [Orthostatic Lying] Blood Pressure [Orthostatic Standing] Pulse Oximetry 100 100 100 10/29/21 15:59 10/29/21 16:06 10/29/21 16:08 Temperature Pulse Rate 69 64 Respiratory Rate 14 Blood Pressure 121/81 Blood Pressure [Orthostatic Lying] 123/79 Blood Pressure [Orthostatic Standing] 126/76 Pulse Oximetry 100 100 10/29/21 16:30 10/29/21 17:00 10/29/21 18:08 Temperature Pulse Rate 68 66 59 L Respiratory Rate 14 22 18 Blood Pressure 119/83 119/77 123/80 Blood Pressure [Orthostatic Lying] Blood Pressure [Orthostatic Standing] Pulse Oximetry 99 100 MDM - Syncope Lab Data Result diagrams: 10/29/21 15:35 10/29/21 15:35 Labs: Lab Results 10/29/21 10/29/21 10/29/21 Range/Units 15:35 15:35 15:35 WBC 4.6 (4.5-11.0) X10^3/uL RBC 4.66 (4.5-5.9) X10^6/uL Hgb 13.5 (13.5-17.5) g/dL Hct 39.8 L (41-53) % MCV 85.3 (80-100) fL MCH 29.0 (26-34) PG MCHC 34.0 (30-36) % RDW 13.3 (11.6-14.8) % Plt Count 131 L (150-400) X10^3/uL Neut % (Auto) 69.3 (50-75) % Lymph % (Auto) 20.1 L (25-40) % Charlton % (Auto) 8.2 (3-14) % Eos % (Auto) 1.6 L (2-4) % Baso % (Auto) 0.8 (0-2) % Neut # (Auto) 3200 (2049-7532) /uL Lymph # (Auto) 900 L (2657-6001) /uL Charlton # (Auto) 400 (0-900) /uL Eos # (Auto) 100 (0-450) /uL Baso # (Auto) 0 (0-100) /uL D-Dimer 203 (<230) ng/mL Sodium 135 L (137-145) mmol/L Potassium 3.8 (3.4-5.1) mmol/L Chloride 106 (98-107) mmol/L Carbon Dioxide 22 (22-32) mmol/L BUN 16 (9-20) mg/dL Creatinine 0.77 (0.66-1.25) mg/dL Estimated GFR > 60.0 (>60) mL/min BUN/Creatinine Ratio 20.8 (6-22) Glucose 120 H (70-100) mg/dL Calcium 8.2 L (8.4-10.2) mg/dL Total Bilirubin 0.5 (0.2-1.3) mg/dL AST 28 (17-59) IU/L ALT 19 (<50) IU/L Alkaline Phosphatase 51 (38-126) U/L Total Creatine Kinase 208 H (55-170) U/L CK-MB (CK-2) 1.45 (<2.37) ng/mL CK-MB (CK-2) Rel Index 0.7 L (1.5-5.0) % Troponin I < 0.012 (0.01-0.034) ng/mL NT-Pro-B Natriuret Pep 36 (<125) pg/mL Total Protein 5.5 L (6.3-8.2) g/dL Albumin 3.5 (3.5-5.0) g/dL Globulin 2.0 (1.7-4.1) g/dL Albumin/Globulin Ratio 1.8 (1.0-2.8) Urine Color Urine Appearance Urine pH (4.5-8.0) Ur Specific Blackstock (1.000-1.035) Urine Protein (Negative) Urine Glucose (UA) (Negative) g/dL Urine Ketones (NEGATIVE) Urine Occult Blood (Negative) Urine Nitrate (Negative) Urine Bilirubin (NEGATIVE) Urine Urobilinogen (0.2) E.U./dL Ur Leukocyte Esterase (NEGATIVE) Urine RBC (0-5/HPF) Urine WBC (0-5/HPF) Ur Squamous Epith Cells (0-5/HPF) Urine Bacteria (None) Ur Culture Indicated? U Opiates 300ng/mL cut (Negative) Ur Oxycodone Screen (Negative) Urine Methadone Screen (Negative) Ur Barbiturates Screen (Negative) U Tricyclic Antidepress (Negative) Ur Phencyclidine Scrn (Negative) Ur Amphetamines Screen (Negative) U Methamphetamines Scrn (Negative) Ur MDMA Scrn (Ecstasy) (Negative) U Benzodiazepines Scrn (Negative) Urine Cocaine Screen (Negative) U Marijuana (THC) Screen (Negative) Ethyl Alcohol ( - 10) mg/dL SARS-CoV-2 (PCR) (Negative) 10/29/21 10/29/21 10/29/21 Range/Units 15:35 16:02 16:02 WBC (4.5-11.0) X10^3/uL RBC (4.5-5.9) X10^6/uL Hgb (13.5-17.5) g/dL Hct (41-53) % MCV (80-100) fL MCH (26-34) PG MCHC (30-36) % RDW (11.6-14.8) % Plt Count (150-400) X10^3/uL Neut % (Auto) (50-75) % Lymph % (Auto) (25-40) % Charlton % (Auto) (3-14) % Eos % (Auto) (2-4) % Baso % (Auto) (0-2) % Neut # (Auto) (1711-7783) /uL Lymph # (Auto) (7567-2627) /uL Charlton # (Auto) (0-900) /uL Eos # (Auto) (0-450) /uL Baso # (Auto) (0-100) /uL D-Dimer (<230) ng/mL Sodium (137-145) mmol/L Potassium (3.4-5.1) mmol/L Chloride (98-107) mmol/L Carbon Dioxide (22-32) mmol/L BUN (9-20) mg/dL Creatinine (0.66-1.25) mg/dL Estimated GFR (>60) mL/min BUN/Creatinine Ratio (6-22) Glucose (70-100) mg/dL Calcium (8.4-10.2) mg/dL Total Bilirubin (0.2-1.3) mg/dL AST (17-59) IU/L ALT (<50) IU/L Alkaline Phosphatase (38-126) U/L Total Creatine Kinase (55-170) U/L CK-MB (CK-2) (<2.37) ng/mL CK-MB (CK-2) Rel Index (1.5-5.0) % Troponin I (0.01-0.034) ng/mL NT-Pro-B Natriuret Pep (<125) pg/mL Total Protein (6.3-8.2) g/dL Albumin (3.5-5.0) g/dL Globulin (1.7-4.1) g/dL Albumin/Globulin Ratio (1.0-2.8) Urine Color Yellow Urine Appearance Clear Urine pH 7.5 (4.5-8.0) Ur Specific Blackstock 1.020 (1.000-1.035) Urine Protein Negative (Negative) Urine Glucose (UA) Negative (Negative) g/dL Urine Ketones Trace H (NEGATIVE) Urine Occult Blood Trace-intact (Negative) Urine Nitrate Negative (Negative) Urine Bilirubin Negative (NEGATIVE) Urine Urobilinogen 0.2 (0.2) E.U./dL Ur Leukocyte Esterase Negative (NEGATIVE) Urine RBC None seen (0-5/HPF) Urine WBC 0-1/hpf (0-5/HPF) Ur Squamous Epith Cells 0-1 /hpf (0-5/HPF) Urine Bacteria None seen (None) Ur Culture Indicated? Cult not indicated U Opiates 300ng/mL cut Negative (Negative) Ur Oxycodone Screen Negative (Negative) Urine Methadone Screen Negative (Negative) Ur Barbiturates Screen Negative (Negative) U Tricyclic Antidepress Negative (Negative) Ur Phencyclidine Scrn Negative (Negative) Ur Amphetamines Screen Negative (Negative) U Methamphetamines Scrn Negative (Negative) Ur MDMA Scrn (Ecstasy) Negative (Negative) U Benzodiazepines Scrn Negative (Negative) Urine Cocaine Screen Negative (Negative) U Marijuana (THC) Screen Positive H (Negative) Ethyl Alcohol < 10 ( - 10) mg/dL SARS-CoV-2 (PCR) (Negative) 10/29/21 Range/Units 16:10 WBC (4.5-11.0) X10^3/uL RBC (4.5-5.9) X10^6/uL Hgb (13.5-17.5) g/dL Hct (41-53) % MCV (80-100) fL MCH (26-34) PG MCHC (30-36) % RDW (11.6-14.8) % Plt Count (150-400) X10^3/uL Neut % (Auto) (50-75) % Lymph % (Auto) (25-40) % Charlton % (Auto) (3-14) % Eos % (Auto) (2-4) % Baso % (Auto) (0-2) % Neut # (Auto) (9605-3690) /uL Lymph # (Auto) (7592-2377) /uL Charlton # (Auto) (0-900) /uL Eos # (Auto) (0-450) /uL Baso # (Auto) (0-100) /uL D-Dimer (<230) ng/mL Sodium (137-145) mmol/L Potassium (3.4-5.1) mmol/L Chloride (98-107) mmol/L Carbon Dioxide (22-32) mmol/L BUN (9-20) mg/dL Creatinine (0.66-1.25) mg/dL Estimated GFR (>60) mL/min BUN/Creatinine Ratio (6-22) Glucose (70-100) mg/dL Calcium (8.4-10.2) mg/dL Total Bilirubin (0.2-1.3) mg/dL AST (17-59) IU/L ALT (<50) IU/L Alkaline Phosphatase (38-126) U/L Total Creatine Kinase (55-170) U/L CK-MB (CK-2) (<2.37) ng/mL CK-MB (CK-2) Rel Index (1.5-5.0) % Troponin I (0.01-0.034) ng/mL NT-Pro-B Natriuret Pep (<125) pg/mL Total Protein (6.3-8.2) g/dL Albumin (3.5-5.0) g/dL Globulin (1.7-4.1) g/dL Albumin/Globulin Ratio (1.0-2.8) Urine Color Urine Appearance Urine pH (4.5-8.0) Ur Specific Blackstock (1.000-1.035) Urine Protein (Negative) Urine Glucose (UA) (Negative) g/dL Urine Ketones (NEGATIVE) Urine Occult Blood (Negative) Urine Nitrate (Negative) Urine Bilirubin (NEGATIVE) Urine Urobilinogen (0.2) E.U./dL Ur Leukocyte Esterase (NEGATIVE) Urine RBC (0-5/HPF) Urine WBC (0-5/HPF) Ur Squamous Epith Cells (0-5/HPF) Urine Bacteria (None) Ur Culture Indicated? U Opiates 300ng/mL cut (Negative) Ur Oxycodone Screen (Negative) Urine Methadone Screen (Negative) Ur Barbiturates Screen (Negative) U Tricyclic Antidepress (Negative) Ur Phencyclidine Scrn (Negative) Ur Amphetamines Screen (Negative) U Methamphetamines Scrn (Negative) Ur MDMA Scrn (Ecstasy) (Negative) U Benzodiazepines Scrn (Negative) Urine Cocaine Screen (Negative) U Marijuana (THC) Screen (Negative) Ethyl Alcohol ( - 10) mg/dL SARS-CoV-2 (PCR) Negative (Negative) Imaging Data CT scan - head: Radiologist's Impression: Close Head CT (Signed) Phani Yuan - 10/29/21 Chest X-Ray (Signed) Phani Yuan - 10/29/21 Knee MRI (Signed) Juancarlos Zapata - 05/09/21 Scrotum Ultrasound (Signed) Sergey Rosa - 01/30/21 Lumbar Spine MRI (Signed) Lokesh Resendiz - 08/27/20 Renal Ultrasound (Signed) Ulises Pierre - 03/01/20 Abdomen/Pelvis CT (Signed) Ulises Pierre - 12/27/19 Lumbar Spine X-Ray (Signed) Keaton Ching - 12/17/19 Launch?[place] [address] CT Scan Report Signed Patient: Dewey Erwin MR#: [id number] : 1975 Acct:[id number] Age/Sex: 45 / M Date of Service: 10/29/21 Loc: Accession Number: [id number] ?? Procedure: CT head/brain wo con Ordering Provider: Allyssa Horn D.O. PROCEDURE:? CT HEAD/BRAIN WO CON ? INDICATIONS:? syncope vs seizure vs other ? TECHNIQUE:? Noncontrast 4.5 mm thick angled axial sections acquired from the foramen magnum to the vertex, with coronal and sagittal reformats.? For radiation dose reduction, the following was used:? automated exposure control, adjustment of mA and/or kV according to patient size.? ? [facility], CRISTELA, XR CHEST 1V, 10/29/2021, 16:00. ? FINDINGS:? Image quality:? Excellent.? ? CSF spaces:? Basal cisterns are patent.? No extra-axial fluid collections.? Ventricles are normal in size and shape.? ? Brain:? No midline shift.? No intracranial masses or hemorrhage.? Garza-white matter interface is normal.? ? Skull and face:? Calvarium and visualized facial bones are intact, without suspicious lesions.? ? Sinuses:? Visualized sinuses and mastoids are clear.? ? IMPRESSION:? Unremarkable intracranial study, without a cause of seizures identified. ? ? Dictated by: Phani Yuan M.D. on 10/29/2021 at 15:12 ? ? Approved by: Phani Yuan M.D. on 10/29/2021 at 15:13?? Chest x-ray: Radiologist's Impression: Launch?[place] [address] XRay Report Signed Patient: Dewey Erwin MR#: [id number] : 1975 Acct:[id number] Age/Sex: 45 / M Date of Service: 10/29/21 Loc: ED Accession Number: [id number] ?? Procedure: XR chest 1V Ordering Provider: Allyssa Horn D.O. PROCEDURE:? XR CHEST 1V ? INDICATIONS:? syncope vs seizure vs other ? TECHNIQUE:? One view of the chest was acquired.? ? COMPARISON:? [facility], CT, CT HEAD/BRAIN WO CON, 10/29/2021, 15:49. ? FINDINGS:? ? Surgical changes and devices:? None.? ? Lungs and pleura:? Lungs are clear.? No pleural effusions or pneumothorax.? ? Mediastinum:? Mediastinal contours appear normal.? Heart size is normal.? ? Bones and chest wall:? No suspicious bony lesions.? Overlying soft tissues appear unremarkable.? ? IMPRESSION:? ? Portable chest within normal limits. ? ? ? Dictated by: Phani Yuan M.D. on 10/29/2021 at 15:14 ? ? Approved by: Phani Yuan M.D. on 10/29/2021 at 15:14? ECG Data Attestation: I personally reviewed and interpreted this ECG as follows: Prior ECG tracings: not available for review Interpretation: Sinus rhythm incomplete right bundle-branch block. Rate of 64 MN 114 QRS of 102 and QTC of 414. No acute ST elevation or depression. MDM Narrative Medical decision making narrative: 45-year-old male with possible seizure activity. This was witnessed by his by her description he had possibly 60 seconds of tonic clonic type activity he did not lose tone. He did not have any incontinence or cuts or lacerations in his mouth but did take couple minutes to return to baseline in was initially somewhat combative. Patient's only major changes recently he has had Ambien last 2 nights. He does take Zoloft and we discussed that possibly medication interaction could have lowered seizure threshold but this is not a clearly well documented change in the literature that I am able to find. Patient and I discussed precautions. Head CT, lab work, telemetry at this time do not find any other clear cause. Patient is to follow up with Neurology in the short term as well as with primary care. He is asked to return if he has any additional changes. Discharge Plan Departure Patient Disposition: Home Clinical Impression: Seizure Instructions: DI for Seizure Disorder -- Adult Activity Restrictions/Additional Instructions: I suspect you may have had a seizure but this is not confirmed. I would recommend stopping the Ambien this may have contributed although it is not a clinically known side effect. I do not recommend driving, working at heights or high risk activities until cleared by your physician. Included is referral to Neurology to follow up. If you have any difficulty establishing referral Dr. Petit can help you with this. Please return for new or worsening symptoms, recurrent shaking, altered mental status, severe headaches, chest pain or shortness of breath, persistent vomiting, passing out, new numbness, tingling or weakness or other new or concerning symptoms. Prescriptions: No Action ondansetron 4 mg tablet,disintegrating 4 mg PO Q6H PRN (Reason: nausea and vomiting) Qty: 20 0RF hydrocodone-acetaminophen [Alamo] 5-325 mg tablet 1 tab PO Q4-6H PRN (Reason: pain) Qty: 10 0RF ketorolac 10 mg tablet 10 mg PO TID PRN (Reason: pain) Qty: 14 0RF tamsulosin [Flomax] 0.4 mg capsule 0.4 mg PO DAILY Qty: 7 0RF Referrals: Rick Petit MD [Primary Care Provider] - Geronimo Sky MD [Non-Staff] -
[2021-10-29] MEDS: ONDANSETRON 4 MG/2 ML INJ IV (15:45)
[2021-10-29 15:57] LABS: Add Manual Diff / Slide Review NO; Basophils Absolute Auto 0 /uL (0-100); Basophils Percent Auto 0.8 % (0-2); Eosinophils Absolute Auto 100 /uL (0-450); Eosinophils Percent Auto 1.6 % (2-4); Hematocrit 39.8 % (41-53); Hemoglobin 13.5 g/dL (13.5-17.5); Lymphocytes Absolute Auto 900 /uL (1100-4500); Lymphocytes Percent Auto 20.1 % (25-40); Mean Corpuscular Volume 85.3 fL (80-100); Monocytes Absolute Auto 400 /uL (0-900); Monocytes Percent Auto 8.2 % (3-14); Neutrophils Absolute Auto 3200 /uL (1500-7000); Neutrophils Percent Auto 69.3 % (50-75); Platelet Count 131 X10^3/uL (150-400); Red Blood Cell Count 4.66 X10^6/uL (4.5-5.9); Red Cell Distribution Width 13.3 % (11.6-14.8); White Blood Cell Count 4.6 X10^3/uL (4.5-11.0)
[2021-10-29 16:02] LABS: D Dimer 203 ng/mL (<230)
[2021-10-29 16:08] LABS: Alanine Aminotransferase 19 IU/L (<50); Albumin 3.5 g/dL (3.5-5.0); Albumin Globulin Ratio 1.8 (1.0-2.8); Alkaline Phosphatase 51 U/L (38-126); Aspartate Aminotransferase 28 IU/L (17-59); BUN Creatinine Ratio 20.8 (6-22); Bilirubin Total 0.5 mg/dL (0.2-1.3); Blood Urea Nitrogen 16 mg/dL (9-20); Calcium 8.2 mg/dL (8.4-10.2); Carbon Dioxide 22 mmol/L (22-32); Chloride 106 mmol/L (98-107); Creatine Kinase 208 U/L (55-170); Estimated Glomerular Filt Rate > 60.0 mL/min (>60); Ethanol (ETOH) < 10 mg/dL; Glucose 120 mg/dL (70-100); HEMOLYSIS < 15 (0-50); Potassium 3.8 mmol/L (3.4-5.1); Sodium 135 mmol/L (137-145); Total Protein 5.5 g/dL (6.3-8.2)
[2021-10-29] MEDS: MECLIZINE HCL 12.5 MG TABLET 50 MG PO (16:15)
[2021-10-29] MEDS: SODIUM CHLORIDE 0.9% 1,000 ML 1000 ML IV (16:15)
[2021-10-29 16:16] LABS: Ur Creatinine Normal (Normal); Ur Specific Gravity Normal (Normal); Urine pH Normal (Normal)
[2021-10-29 16:17] LABS: UR Morphine/Opiate cutoff 300 Negative (Negative); Urine Amphetamines Negative (Negative); Urine Barbiturates Negative (Negative); Urine Benzodiazepines Negative (Negative); Urine Cocaine Negative (Negative); Urine MDMA Negative (Negative); Urine Methadone Negative (Negative); Urine Methamphetamines Negative (Negative); Urine Oxycodone Negative (Negative); Urine Phencyclidine Negative (Negative); Urine Tetrahydrocannabinol Positive (Negative); Urine Tricyclic Antidepressant Negative (Negative)
[2021-10-29 16:20] LABS: NT-proBNP (BNP-Adult 18+) 36 pg/mL (<125); Troponin I < 0.012 ng/mL (0.01-0.034)
[2021-10-29 16:23] LABS: CKMB % Relative Index 0.7 % (1.5-5.0); Creatine Kinase MB 1.45 ng/mL (<2.37)
[2021-10-29 16:41] LABS: COVID19 -Nasal RAPID Negative (Negative)
[2021-10-29 16:58] LABS: Appearance Urine UA CLEAR; Bilirubin Urine UA NEGATIVE (NEGATIVE); Color Urine UA YELLOW; Glucose Urine UA NEGATIVE (Negative); Ketones Urine UA TRACE (NEGATIVE); Leukocyte Esterase Urine UA NEGATIVE (NEGATIVE); Nitrite Urine UA NEGATIVE (Negative); Occult Blood Urine UA TRACE-INTACT (Negative); Protein Urine UA NEGATIVE (Negative); Urobilinogen Urine UA 0.2 E.U./dL (0.2); pH Urine UA 7.5 (4.5-8.0)
[2021-10-29 17:12] LABS: Bacteria Urine None Seen; Culture Indicated Urine Cult Not Indicated; RBC Urine None Seen (0-5/HPF); Squamous Epithelial Cell Urine 0-1 /HPF (0-5/HPF); WBC Urine 0-1/HPF (0-5/HPF)
== END 2021-10-29 18:24 | disposition home or self-care (01) ==
PROVIDERS: Emergency Provider Emergency Medicine; PCP Family Medicine
DX: R56.9 Unspecified convulsions (principal); R03.1 Nonspecific low blood-pressure reading; R42 Dizziness and giddiness; Z20.822 Contact with and (suspected) exposure to COVID-19
CPT/HCPCS: 36415; 70450; 71045; 80053; 80305; 80320; 81001; 82550; 82553; 83880; 84484; 85025; 85379; 87635; 93005; 96374; 99284; C9803; J2405

== ENCOUNTER → 2021-11-13 10:50 | Outpatient (CLI) | payer OTHER, SELFPAY ==
--- NOTE | 2021-11-13 | DI.MRI.S_ITS ---
PROCEDURE: MR STROKE Pre- and post-contrast brain MRI, non-contrast brain MR angiogram, pre- and postcontrast neck MR angiogram INDICATIONS: Unspecified convulsions TECHNIQUE: Brain: Noncontrast axial T1 spin echo, axial T2 fast spin echo, sagittal and axial FLAIR, coronal T2 fast spin echo, axial gradient echo, axial diffusion and ADC through the brain. After the administration of contrast, axial 3D VIBE of the cranial vasculature and brain. Brain MRA: Non-contrast 3-D time of flight MR angiogram, with multiple mzmgrlc-jiminzwgx-bpeqwatpyq (MIP) reformats performed. Neck MRA: Axial and sagittal TruFISP through the neck. Coronal dynamic MR angiogram during administration of contrast in the arterial and venous phases, with 3-dimenstional kynfxpg-wzvjggbsh-jeaupokxvp (MIP) reformats constructed from subtraction images. COMPARISON: None. FINDINGS: Image quality: Excellent. BRAIN: CSF spaces: Ventricles are normal in size and shape. Basal cisterns are patent. No extra-axial fluid collections. Brain: No intracranial bleeds or mass effects. Garza-white matter interface is normal. Diffusion weighted images show no acute ischemic insults. Brainstem appears normal. Normal intravascular flow voids are present. Dural sinuses demonstrate normal postcontrast enhancement. No abnormal intracranial enhancement. Skull and face: Calvarial marrow signal is normal. Orbits appear normal. Sinuses: Sinuses and mastoids are clear. BRAIN MR ANGIOGRAM: Anterior circulation: Intracranial internal carotid arteries are normal in size and enhancement. The flow within the paired anterior cerebral arteries is normal and symmetric. The flow within the middle cerebral arteries is normal and symmetric. The anterior communicating artery is seen. No stenoses, occlusions, or aneurysms. Posterior circulation: The visualized portions of the vertebral arteries demonstrate normal caliber, and join to form a normal appearing basilar artery. The flow within the posterior cerebral arteries is normal and symmetric. No stenoses, occlusions, or aneurysms. NECK MR ANGIOGRAM: Carotids: Great vessels demonstrate bovine variant anatomy as they arise from the aortic arch. The origins of the common carotid arteries appear patent. The calibers and courses of both common carotid arteries are normal. The bifurcation regions appear normal bilaterally. The internal carotid arteries demonstrate normal course and caliber. Posterior circulation: The origins of the vertebral arteries appear patent. More superior portions of both vertebral arteries demonstrate normal course and caliber, and join to form a normal appearing basilar artery. Miscellaneous: Subclavian arteries appear patent. Pre-contrast images through the neck show no soft tissue abnormalities. IMPRESSION: BRAIN MRI: 1. No intracranial disease process. 2. No areas of acute or chronic infarction. 3. No abnormal intracranial mass or suspicious postcontrast enhancement. BRAIN MR ANGIOGRAM: Negative examination. NECK MR ANGIOGRAM: Negative examination. Dictated by: Jaki Melendez MD, PhD on 11/13/2021 at 11:51 Approved by: Jaki Melendez MD, PhD on 11/13/2021 at 11:57
== END ==
PROVIDERS: PCP Family Medicine; Referring Provider Family Medicine; Visit Provider Family Medicine
DX: R56.9 Unspecified convulsions (principal)
CPT/HCPCS: 70548; 70553; A9579

== ENCOUNTER → 2022-01-05 11:30 | Outpatient (CLI) | payer OTHER, SELFPAY ==
[2022-01-05 14:11] LABS: COVID19 -Nasal RAPID Negative (Negative)
== END ==
PROVIDERS: PCP Family Medicine; Visit Provider Family Medicine Sleep Medicine
DX: Z20.822 Contact with and (suspected) exposure to COVID-19 (principal)
CPT/HCPCS: 87635; C9803

== ENCOUNTER 2022-01-08 08:11 | Day surgery (SDC) | payer OTHER, SELFPAY ==
[2022-01-08] VITALS (10 sets, daily range): BP systolic 93–119; BP diastolic 56–73; PULSE 54–70; RESP 15–18; TEMP 36.4–36.9; O2SAT 94–100; BMI 24.3
[2022-01-08] MEDS: LACTATED RINGERS 1,000 ML 84 ML IV ×2 (08:34→11:02)
--- NOTE | 2022-01-08 09:33 | PM.PREOP ---
Pre-operative Note COVID-19 COVID-19 status: Negative Result date/Date tested (Pos, Neg/Pending): 01/05/22 Criteria for continued procedure: Expected advancement of disease process and Continuing or worsening of significant or severe pain Interval Note History & Physical reviewed/Exam performed by Physician: Yes Changes to H&P: No ASA Class (for procedural sedation): I
[2022-01-08] MEDS: CEFAZOLIN 2 GM/20 ML SYRINGE IV (10:00)
--- NOTE | 2022-01-08 10:22 | SUR.OPER ---
Supine on padded OR bed, head on pillow, arms padded and tucked at sides, legs uncrossed, safety belt at thigh, tape over blanket over lower legs .
[2022-01-08] MEDS: BUPIVACAINE 0.5% (PF) VIAL 30 ML INJ (10:27)
[2022-01-08] MEDS: LIDOCAINE 1% 20 ML INJ (10:28)
[2022-01-08] MEDS: EPINEPHrine 1 MG/ML 0.2 MG IM (10:30)
--- NOTE | 2022-01-08 11:45 | PM.OP.1 ---
Operative Date/Time/Diagnoses Date of procedure: 01/08/22 Time of procedure: 11:45 Pre-op diagnosis: Right inguinal hernia Post-op diagnosis: same Procedure & Clinicians Procedure: Laparoscopic right inguinal hernia repair with mesh Same procedure as scheduled: Yes Surgeon: Jerry Nina Anesthesia Type: General Operative Notes Findings: Right direct hernia, no left hernia Procedure in detail: The patient was given preoperative antibiotics. The patient was brought to the operating room, placed on the table in the supine position with the arms tucked and general anesthesia was induced. The abdomen was prepped and draped in the usual fashion. A time-out was performed. A 1 cm curvilinear infraumbilical incision was created and dissection was carried down to the base of the umbilical stalk. The umbilical stalk was grasped with a Rosangela clamp to elevate the abdominal wall. The fascia was scored transversely with cautery. A Peon clamp was used to agosto the peritoneum. The Ramonita port was placed and the abdomen was insufflated to 15 mmHg. The camera was inserted, there was no evidence of any injury from the entry. There was a right direct inguinal hernia and no left inguinal hernia. 5 mm ports were placed under direct vision in the mid left and mid right abdomen. The patient was positioned in steep Trendelenburg. We created right peritoneal flap. The peritoneum was dissected off of the right cord structures. A a medium right Bard mesh was brought in and placed over the defect with the medial edge against Wu's ligament. We then closed the peritoneal flap with a running 3-0 barbed suture. We took one last look around the abdomen and saw no other abnormalities. The suture was removed and accounted for. The 5 mm ports were removed under direct vision. The abdomen was desufflated. The Ramonita port was removed. Additional local was injected into the fascia and the infraumbilical fascial incision was closed with 2 interrupted 0 Vicryl sutures. The skin incisions were closed with 4 Monocryl, Steri-Strips and Band-Aids. Post-operative Condition: stable Disposition: PACU
[2022-01-08] MEDS: ONDANSETRON 4 MG/2 ML INJ IV (12:03)
[2022-01-08] MEDS: OXYCODONE IR 5 MG TABLET PO (12:11)
[2022-01-08] MEDS: ACETAMINOPHEN 325 MG TABLET 650 MG PO (12:11)
--- NOTE | 2022-01-08 15:16 | SUR.PHASEII ---
Late entry: Pt asked to go home, ride called, available for pick[employer] material [employer], bandaids to abdomen, c/d/i. stated pain tolerable. Left when ready and left in stable condition.
== END 2022-01-08 12:55 | disposition home or self-care (01) ==
PROVIDERS: PCP Family Medicine; Referring Provider Surgery; Visit Provider Surgery
PROC: 0YQ54ZZ Repair Right Inguinal Region, Percutaneous Endoscopic Approach (ICD-10-PCS; CPT 49650; principal; 2022-01-08 09:45)
DX: K40.90 Unilateral inguinal hernia, without obstruction or gangrene, not specified as recurrent (principal)
CPT/HCPCS: 49650; J0171; J0690; J1100; J1885; J2405; J2704; J3010

== ENCOUNTER → 2022-10-11 10:59 | Outpatient (CLI) | payer OTHER, SELFPAY ==
--- NOTE | 2022-10-11 | DI.RAD.S_ITS ---
PROCEDURE: XR ACUTE ABDOMEN SERIES INDICATIONS: Left upper quadrant pain TECHNIQUE: One view chest and two views of the abdomen were acquired. COMPARISON: [facility], CT, CT KIDNEY URETER BLADDER (KUB), 12/27/2019, 16:41. FINDINGS: Surgical changes and devices: None. Chest: Lungs are clear. Heart size is normal. No pleural effusions. No pneumoperitoneum. Abdomen: Bowel gas pattern is normal. 12 mm calcification projects over the left hemiabdomen. Visualized solid organ contours appear normal. Bones: No suspicious bony lesions. IMPRESSION: 1. No acute process. 2. Left abdominal calcification, consistent with the known renal calculus seen by CT. Dictated by: Lokesh Resendiz M.D. on 10/11/2022 at 14:41 Transcribed by: HARISH on 10/11/2022 at 14:42 Approved by: Lokesh Resendiz M.D. on 10/11/2022 at 16:30
== END ==
PROVIDERS: PCP Family Medicine; Referring Provider Family Medicine; Visit Provider Family Medicine
DX: R10.12 Left upper quadrant pain (principal)
CPT/HCPCS: 74022

== ENCOUNTER → 2025-03-02 11:45 | Outpatient (CLI) | payer OTHER, SELFPAY ==
--- NOTE | 2025-03-02 11:47 | DI.US.S_ITS ---
PROCEDURE: US EXTREMITY NONVASC LOWER LT INDICATIONS: LEFT HAMSTRING MASS TECHNIQUE: Real-time scanning was performed of the left posterior medial upper thigh, with image documentation. COMPARISON: None. FINDINGS: Focused ultrasound examination of left posterior medial upper thigh at patient's reported area of palpable lump shows a 5.9 x 2.0 x 1.1 cm slightly hyperechoic and solid appearing structure within subcutaneous soft tissue and show no internal vascularity. IMPRESSION: Finding may represent lipoma in left medial upper thigh. If indicated, MRI of left thigh without and with contrast can be done for further evaluation. Dictated by: Juancarlos Zapata M.D. on 03/02/2025 at 14:53 Approved by: Juancarlos Zapata M.D. on 03/02/2025 at 14:54
== END ==
PROVIDERS: PCP Family Medicine; Referring Provider Family Medicine; Visit Provider Family Medicine
DX: R22.42 Localized swelling, mass and lump, left lower limb (principal)
CPT/HCPCS: 76882

== ENCOUNTER 2025-05-05 09:55 | Day surgery (SDC) | payer OTHER, SELFPAY ==
[2025-04-27 15:07] VITALS: BMI 25.2
[2025-05-05] VITALS (7 sets, daily range): BP systolic 109–133; BP diastolic 75–83; PULSE 56–78; RESP 12–14; TEMP 36.1–36.7; O2SAT 96–100; BMI 25.2
--- NOTE | 2025-05-05 | PATH_ITS ---
[facility] Accession Number: [id number] No. of containers..01 Tissue . 01 Material submitted: . leg - LEFT LEG LIPOMA . 01 Diagnosis: LEFT LEG LIPOMA, EXCISION: Lipoma. MRV 05/07/2025 1521 Local . 01 Electronically signed: . Kary Curran DO, Pathologist NPI- [id number] . 01 Gross description: . Received in formalin with two identifiers and left leg lipoma, is a yellow, encapsulated soft tissue fragment, 5.5 x 4.0 x 1.4 cm. Inked blue and sectioned to reveal a yellow, soft, homogenous cut surface. Machine Sizer sections are submitted in A1. ([id number]) /MRV 05/06/2025 1910 Local . 01 Pathologist provided ICD-10: D17.24 . 01 CPT . 929765 Specimen Comment: A courtesy copy of this report has been sent to [phone] Performed at: [address] [id number] MD Fausto Reza MD Phone: [phone]
[2025-05-05] MEDS: LACTATED RINGERS 1,000 ML 42 ML IV (10:23)
[2025-05-05] MEDS: ACETAMINOPHEN 325 MG TABLET 975 MG PO (10:27)
--- NOTE | 2025-05-05 10:53 | PM.PREOP ---
Pre-operative Note COVID-19 COVID-19 status: Not tested Interval Note History & Physical reviewed/Exam performed by Physician: Yes Changes to H&P: No ASA Class (for procedural sedation): I
[2025-05-05] MEDS: BUPIVACAINE 0.5% W/ EPI (PF) 30 ML VIAL INJ (11:40)
--- NOTE | 2025-05-05 11:53 | SUR.OPER ---
Lithotomy on padded OR bed, head on pillow, arms secured on padded arm boards at <90 degrees abduction. Legs secured in padded yellow fins stirrups.
--- NOTE | 2025-05-05 12:05 | PM.OP.1 ---
Operative Date/Time/Diagnoses Date of procedure: 05/05/25 Time of procedure: 12:05 Pre-op diagnosis: Left leg soft tissue mass Post-op diagnosis: same Procedure & Clinicians Procedure: Excisional biopsy of left leg soft tissue mass Same procedure as scheduled: Yes Surgeon: Jerry Nina Click Yes if Unassisted: Yes Anesthesia Type: MAC +/- Operative Notes Findings: 7 cm x 6 cm x 5 cm fatty soft tissue mass Estimated Blood Loss (mL): 5 Procedure in detail: The patient is a 49-year-old man who presented with a soft tissue mass of his posterior left thigh that was irritating. He was marked in the preoperative holding area. The patient was brought to the operating room, placed on the table in the supine position and anesthesia was induced. He was positioned in high lithotomy. No antibiotics were indicated. The left posterior thigh was prepped and draped in the usual fashion and a time-out was performed. We made a 7 cm incision over the soft tissue mass. Dissected down through the subcutaneous adipose tissue and divided the fascia. The mass appeared to be a lipoma. The deepest aspect of the mass was adjacent to the biceps femoris but was not involving the muscle itself. No muscle fibers were divided. Mass was dissected free with cautery. Additional local was injected into the muscle and fascia. The wound was closed in layers using multiple interrupted 3-0 Vicryl dermal sutures and a running 4-0 Monocryl subcuticular stitch. EBL: 5 mL Specimen: Left leg soft tissue mass Complications: none Post-operative Condition: stable Disposition: PACU
[2025-05-05] MEDS: ONDANSETRON 4 MG/2 ML INJ IV (12:11)
== END 2025-05-05 13:11 | disposition home or self-care (01) ==
PROVIDERS: PCP Family Medicine; Referring Provider Surgery; Visit Provider Surgery
PROC: (CPT 27337; principal; 2025-05-05 11:15)
DX: D17.24 Benign lipomatous neoplasm of skin and subcutaneous tissue of left leg (principal)
CPT/HCPCS: 27337; J1100; J1885; J2250; J2405; J2704; J3010